=== PATIENT | female | born 1960 | race Caucasian/White ===

== ENCOUNTER 2016-12-17 12:32 | Inpatient (IN) | payer BC, MEDICARE ==
--- NOTE | ~2016-12-17 | IDS ---
Interim Discharge Summary [facility] [address] [place]. [address] NAME: SHERRY HOUSTON : 60 STATUS : ADM IN [facility]#: [id number] AGE: 56 ADM/REG DATE : 12/17/16 MR#: [id number] REPORT SERV DATE: 12/18/16 DICTATED BY: DIXON ANDREW IV DATE: 12/18/16 REPORT STATUS : Draft TRANSCRIBED BY: DARLENE DATE: 12/18/16 ADMISSION DATE: 12/17/2016 DISCHARGE DATE: DATE OF TRANSFER: To the floor was 12/18/2016. ADMITTING DIAGNOSES: 1. Acute dysarthria and weakness treated as a code stroke with tPA with reported symptomatic improvement. 2. Type 1 diabetes mellitus with insulin pump. 3. Acute kidney injury with stimulation to slight improvement in the creatinine. 4. Hypothyroidism. 5. Coronary artery disease. 6. Symptomatic obstructive sleep apnea. CONSULTANTS: Neurology, who accepted the patient from [facility] and guided therapy for the acute neurologic event. PROCEDURES: The patient had a head CT and CT angiogram of the head at [facility] prior to transfer failing to demonstrate any acute pathology of the brain with no significant obstructing lesion. She, at our facility, had an MRI demonstrating a small focal right cerebellar defect consistent with a previous infarct. An EEG which demonstrated no evidence for seizure activity and otherwise unremarkable. An echocardiogram demonstrating ejection fraction of 60% with an indeterminate bubble study secondary to poor windows. CURRENT MEDICATIONS: The patient is on Aricept 5 mg at bedtime, aspirin 81 mg daily, Bactroban 1 g each nostril twice a day, thiamine 200 mg daily, Lasix 20 mg daily, Lipitor 80 mg at bedtime, Lyrica 100 mg twice a day, Namenda 10 mg twice a day, insulin pump, Plavix 75 mg daily, Pletal 100 mg twice a day, Promega twice a day, Protonix 40 mg daily, Synthroid 137 mcg daily, multivitamin daily, Wellbutrin 400 mg daily, and vitamin D 2000 mg daily. HOSPITAL COURSE: The patient was admitted to the ICU from [facility] by Neurology after the patient presented from the physical therapist with, by reports, acute dysarthria and weakness and poor motor function in both hands, but worse on the left. The patient underwent initial screening and received tPA per protocol for what was felt to be a possible ischemic event. The patient reportedly had symptomatic improvement. She underwent her subsequent evaluation as noted above. The only positive findings were for a small focal area in the right cerebellar region, which appeared to be consistent with an old stroke. The patient continued to have some transient periods of slurred speech that would come and go, though were not consistently present. It was felt by Neurology that no further neurologic evaluation was required. She is followed as an outpatient by Dr. Jean-Baptiste and has had some waxing and waning neurologic symptoms in the past for which she has previously seen a neuropsychiatrist and was felt to possibly have some early dementia. The patient is on an insulin pump and has had consistent hemoglobin A1cs that have been elevated with one here in the 9.7 range. She has had blood sugars vary between 60s and 500, though reportedly her pump became dislodged last night in her monitoring wires. We had clinical systems educator see the Interim Discharge Summary [address] [place]. [address] NAME: SHERRY HOUSTON : 60 STATUS : ADM IN PAT#: [id number] AGE: 56 ADM/REG DATE : 12/17/16 MR#: [id number] REPORT SERV DATE: 12/18/16 DICTATED BY: DIXON ANDREW IV DATE: 12/18/16 REPORT STATUS : Draft TRANSCRIBED BY: DARLENE DATE: 12/18/16 patient today with some recommendations concerning her diet and the consistency of protein and carbohydrates. They agreed that the patient would be better served to be observed for at least 24 hours to make sure her blood sugars are adequately controlled. The patient has clinical symptoms and a history consistent with obstructive sleep apnea for which a outpatient sleep evaluation has been recommended. She had a bump in her creatinine postadmission, which may have been secondary to the contrast, however, that is returning to baseline currently at 1.22. Her potassium bump though was okay on repeat. Levels will be requested for tomorrow. It is felt that she no longer required care in the intensive care unit and will be transferred to the floor on the Hospitalist Service. They were made aware. Neurology will continue to follow the patient. NM/FLORL Dixon Andrew IV, M.D. / [id number] CC: MD Argenis Perkins M.D.
--- NOTE | ~2016-12-17 | DS ---
Discharge Summary [facility] [address] [place]. [address] NAME: SHERRY HOUSTON : 60 STATUS : DIS IN PAT#: [id number] AGE: 56 ADM/REG DATE : 12/17/16 MR#: [id number] REPORT SERV DATE: 12/19/16 DICTATED BY: DIXON ANDREW IV DATE: 12/19/16 REPORT STATUS : Draft TRANSCRIBED BY: DARLENE DATE: 12/19/16 ADMISSION DATE: 12/17/2016 DISCHARGE DATE: 12/19/2016 ADMITTING DIAGNOSES: 1. Acute dysarthria and weakness treated as a code stroke with tPA with reported symptomatic improvement. 2. Insulin-dependent diabetes mellitus, on insulin pump with poor control. 3. Acute on chronic kidney disease with a creatinine remaining above previous lows. 4. Hypothyroidism, on replacement therapy. 5. Coronary artery disease. 6. Clinical obstructive sleep apnea, not previously evaluated. CONSULTANTS: 1. Neurology, Dr. Elisabeth Broussard, who accepted the patient from [facility] and guided therapy for the acute neurologic event. 2. Diabetic teaching, who reviewed the patient's insulin pump settings and diet with the patient. PROCEDURES: 1. Head CT and CT angiogram of the head at [facility], which failed to demonstrate any acute pathology in the brain and no significant vascular obstructing lesion. 2. MRI of the brain demonstrating a small focal right cerebellar defect consistent with a previous infarct. 3. An EEG, which demonstrated no evidence for seizure activity and otherwise was unremarkable. 4. Echocardiogram demonstrating normal left ventricular ejection fraction of 60% with no valvular disease and an indeterminate bubble study secondary to poor windows. MEDICATIONS: At the time of discharge include Aricept 5 mg at bedtime, aspirin 81 mg daily, Lasix 20 mg daily, Crestor 10 mg daily, biotin 10 mg daily, Wellbutrin 400 mg every morning, Invokana 100 mg before breakfast, Pletal 100 mg twice a day, Plavix 75 mg daily, Synthroid 137 mcg daily, Namenda 10 mg twice a day, Ocuvite one daily, NitroMist daily, fish oil daily, Percocet p.r.n., Protonix 40 mg daily, Lyrica 100 mg twice a day, Crestor 10 mg at bedtime, and insulin pump. HOSPITAL COURSE: The patient was admitted to the ICU from [facility] by Neurology after she presented with dysarthria; complaints of weakness, right greater than left with decreased fine motor function in both hands. The patient underwent initial screening studies and received tPA per protocol. It was felt to be a possible ischemic event. The patient reportedly had symptomatic improvement. She underwent subsequent evaluation with studies as noted above. The patient did have some transient periods of slurred speech that were not consistently present. It was felt by Neurology that no further neurologic evaluation was indicated, and she was put back on the anti-platelet medications. She is scheduled to see Dr. Jean-Baptiste as an outpatient and may benefit from her repeat neuropsychiatric evaluation. The patient had elevated hemoglobin A1c on presentation and has had documented high hemoglobin Discharge Summary [address] [place]. [address] NAME: SHERRY HOUSTON : 60 STATUS : DIS IN PAT#: [id number] AGE: 56 ADM/REG DATE : 12/17/16 MR#: [id number] REPORT SERV DATE: 12/19/16 DICTATED BY: DIXON ANDREW IV DATE: 12/19/16 REPORT STATUS : Draft TRANSCRIBED BY: DARLENE DATE: 12/19/16 A1c's in the [employer] system. We had diabetic teaching review her pump settings, which were not changed though they did review proper diet and carbo-protein mix with the patient. The patient had significant fluctuations in her blood sugars and had an episode of disconnection of the pump. This stabilized, however, blood sugars remained in the low 200 to high 180s, which will need to be followed. The patient provided a history consistent with obstructive sleep apnea for which an outpatient sleep evaluation with Dr. Smith was scheduled. The patient had a slightly elevated creatinine, which remained in the 1 to 2 range, which is slightly higher than her baseline and will be followed as an outpatient with her primary care doctor, Dr. Najera. The patient was scheduled for transfer to the floor, however, no beds were available, so she will be discharged today from the intensive care unit with followup as noted. She will see Dr. Jean-Baptiste in one to two weeks, Dr. Holt as scheduled, and Dr. Najera in two to three weeks with a repeat chemistry panel. Outpatient evaluation will be scheduled for sleep evaluation. ROSEMARY/DARLENE Dixon Andrew IV, M.D. / [id number] CC: MD Argenis Perkins M.D. Alexander Stratienko, M.D. Matthew Kodsi, M.D., PhD. Roby Holt M.D.
--- NOTE | ~2016-12-17 | CN ---
Consultation Report [facility] [address] [place]. [address] NAME: SHERRY HOUSTON : 60 STATUS : ADM IN PAT#: [id number] AGE: 56 ADM/REG DATE : 12/17/16 MR#: [id number] REPORT SERV DATE: 12/17/16 DICTATED BY: DATE: REPORT STATUS : Draft TRANSCRIBED BY: MODL DATE: 12/17/16 NEUROLOGY CONSULTATION DATE OF CONSULTATION: 12/17/2016 REASON FOR CONSULT: Right upper extremity weakness and ataxia. HISTORY OF PRESENT ILLNESS: This is a 56-year-old female, who presented to [facility] on 12/17/2016, secondary to acute onset of difficulty moving right upper extremity, with the patient having difficulties buttoning shirts, and putting earrings on. The patient reports the symptoms started after awakening at around 6 o'clock, with the patient having had multiple episodes over the past six months. The patient reports the symptoms started with abnormal sensation, dysarthria, as well as shaking in bilateral hands, sometimes that follow with headache. With the patient reports symptom usually resolved after an hour. The patient reports the symptom has resolved today without residual deficits. The usual frequency of symptoms is roughly one to two episodes per month at least and is being ongoing for at least six months. The patient does reports having some increased psychosocial stress, secondary to medical issues of her mother. The patient otherwise denies any recent illness, fever, chills, nausea, vomiting, chest pain, or shortness of breath, and denies any current symptoms. The patient denies any recent changes in medication. The patient is followed by Dr. Sunny Jean-Baptiste, [facility], secondary to subjective memory difficulties. With the patient has been referred to neuropsychiatry for further evaluation. Otherwise, no recent change in medication was reported by the patient. PAST MEDICAL HISTORY: The patient has past medical history is significant for subjective memory difficulties, referred to and evaluated by Dr. Sunny Jean-Baptiste, with the recent neuropsychiatric evaluation. The patient in addition was also noted to have type 1 diabetes. SOCIAL HISTORY: Denies current tobacco, alcohol, or recreational drug usage. The patient does reports previous tobacco usage and quit more than 10 years ago. The patient does also have coronary artery disease, status post stents. FAMILY HISTORY: Significant for coronary artery disease, myocardial infarction. Family history is also significant for pacemaker placement. ALLERGIES: THE PATIENT REPORTS ALLERGY TO TRAZODONE. HOME MEDICATIONS: Aspirin, biotin, Symbicort, Wellbutrin, Invokana, vitamin D, Pletal, Plavix, Aricept, Lasix, levothyroxine, Namenda, Ocuvite, nitroglycerin, fish oil, Percocet, Crestor, Lyrica, and Protonix. The patient in addition was also noted to have an insulin pump placement. REVIEW OF SYSTEMS: Consultation Report [facility] [address] [place]. [address] NAME: SHERRY HOUSTON : 60 STATUS : ADM IN PAT#: [id number] AGE: 56 ADM/REG DATE : 12/17/16 MR#: [id number] REPORT SERV DATE: 12/17/16 DICTATED BY: DATE: REPORT STATUS : Draft TRANSCRIBED BY: MODL DATE: 12/17/16 Negative except for those mentioned in the HPI. PHYSICAL EXAMINATION: VITAL SIGNS: At the time of evaluation, the patient was noted to have vital signs with T- max of 97.8, heart rate of 75 to 79, respirations of 14 to 18, and blood pressure of 107 to 134/67 to 71. GENERAL: The patient is well-developed, well-nourished, in no acute distress. CARDIOVASCULAR: Regular rate and rhythm. No carotid bruits were otherwise auscultated. PULMONARY: Clear to auscultation bilaterally. NEUROLOGIC: Generally, the patient is alert and oriented to person, place, year, and month. Follows simple and 2-step commands. No dysarthria or aphasia was noted at the time of evaluation. Intact registration with some difficulty with recall. Cranial nerves 2 through 12, pupils equal, round, and reactive to light. Extraocular eye movement was noted to be intact, with intact blink to threat response. Symmetrical facial expression and sensation. Midline tongue. Normal palatal movement. Normal hearing. The patient was noted to have 4/5 right upper extremity strength which the patient reports, secondary to previous shoulder injury, but otherwise no pronator drift was noted. The patient demonstrated 5/5 left upper extremity strength and 5/5 bilateral lower extremity strength. Normal [id number] examination without ataxia. Reports symmetrical sensation bilaterally. Deep tendon reflex was 2+ throughout. Downgoing toe on bilateral plantar reflexes. Gait was not evaluated, secondary to tPA administration as well as acute symptom. LABORATORY DATA: Laboratory study demonstrates sodium 143, potassium 3.4, chloride 105, bicarb 31, BUN of 24, creatinine 1.05, glucose of 97, calcium of 8.9, magnesium 2.0. White blood cell count of 5.8, hemoglobin of 13.6, hematocrit of 42.7, and platelet count of 293. CT scan of the brain demonstrated previous lacunar infarct, but otherwise no acute process was seen. No significant atrophy. CT angiogram of the head and neck demonstrated no significant stenosis or possible thrombus. IMPRESSION: 1. Right upper extremity weakness. NIH stroke scale was noted to be 1. Symptom was noted to resolve according to the patient. The patient reports back to baseline, status post tPA therapy. With the patient reports recurrent similar symptoms over the past six months. With the patient reports at least one to two episodes per month. We will obtain MRI of the brain for evaluation. We will also check EEG. Meanwhile, we will perform stroke workup. Current differential diagnosis includes possible TIA versus stroke, versus possible seizure, versus complex migraine, versus psychogenic event. RECOMMENDATION: 1. We will hold aspirin and Plavix, secondary to recent tPA. 2. Atorvastatin 80 mg p.o. at bedtime. 3. PT/OT. 4. MRI of the brain without contrast. 5. EEG. 6. Echocardiogram. Consultation Report [address] [address] NAME: SHERRY HOUSTON : 60 STATUS : ADM IN [facility]#: [id number] AGE: 56 ADM/REG DATE : 12/17/16 MR#: [id number] REPORT SERV DATE: 12/17/16 DICTATED BY: DATE: REPORT STATUS : Draft TRANSCRIBED BY: MODL DATE: 12/17/16 7. Fasting lipid panel and hemoglobin A1c evaluation. [facility]/MODL Yash Broussard MD / [id number] CC: Karel Mansfield MD
--- NOTE | ~2016-12-17 | EEG ---
Electroencephalogram [facility] [address] [place]. [address] NAME: SHERRY HOUSTON : 60 STATUS : ADM IN PAT#: [id number] AGE: 56 ADM/REG DATE : 12/17/16 MR#: [id number] REPORT SERV DATE: 12/17/16 DICTATED BY: DATE: REPORT STATUS : Draft TRANSCRIBED BY: MODL DATE: 12/17/16 CLINICAL INDICATIONS: Weakness. DESCRIPTION: This EEG was performed using 10/20 electrode placement system. During the EEG study, symmetric background activity was noted with predominant occipital rhythm of between 12-13 hertz. Photic stimulation was performed with appropriate driving response. Hyperventilation was not performed. During the EEG study, the patient achieved drowsy as well as stage I and II sleep with appropriate K complexes as well as sleep spindles. No focal abnormalities, seizure activity, or seizure discharge was otherwise noted during the EEG study. INTERPRETATION: This EEG study obtained during awake, drowsy, as well as stage I and II sleep may be considered within normal limits. No focal abnormalities, seizure activity, or seizure discharge was otherwise seen. Normal EEG does not rule out clinical seizure or seizure disorder. Clinical correlation is otherwise recommended. [facility]/MODL Yash Broussard MD / [id number] CC: Karel Mansfield MD
--- NOTE | ~2016-12-17 | HP ---
History And Physical [address] [id number] [place]. [address] NAME: SHERRY FLOREZ : 60 STATUS : ADM IN [facility]#: [id number] AGE: 56 ADM/REG DATE : 12/17/16 MR#: [id number] REPORT SERV DATE: 12/17/16 DICTATED BY: DIXON ANDREW IV DATE: 12/17/16 REPORT STATUS : Draft TRANSCRIBED BY: DARLENE DATE: 12/17/16 DATE OF ADMISSION: 12/17/2016 REASON FOR ADMISSION: Acute neurologic event for which the patient received tPA. HISTORY OF PRESENT ILLNESS: History is obtained from the patient and records. Ms. Florez is a 56-year-old female with a history of fibromyalgia, diabetes mellitus, hypothyroidism, coronary artery disease, peripheral arterial disease, and neurologic symptoms to include predominantly altered memory, who is admitted with status post tPA for possible acute stroke. The patient states that she has been followed by Dr. Jean-Baptiste for two years for several neurologic complaints. This is predominantly alteration in her mental status. She underwent a recent neuropsychiatric evaluation by her report. Concern about possibly an early dementia. She does have these waxing and waning episodes of decreased fine motor function particularly in her hands. She additionally will have episodes of dysarthria. She relates that she was being seen by her physical therapist when she developed acute onset of dysarthria. This was associated with clumsiness in both hands. She states that specifically her left hand fell off to the side. She went to the emergency room, where there was concern about this being a "stroke." She underwent a head CT and CT angiogram, which failed to demonstrate any clear pathology, so she received tPA per protocol. She noted improvement of symptoms after infusion for which she was transferred here for further evaluation. The patient had no recent trauma. She denies any headaches. She denied shortness of breath, chest pain, fevers, chills, or sweats. The patient reportedly snores. Her has never described apneic episodes. She allows herself six to seven hours of sleep most evenings. Sleep is nonrestorative, and she does complain of some sedentary hypersomnolence. PULMONARY HISTORY: Remarkable for no history of childhood asthma, known adult obstructive lung disease or previous pneumonia. She was a 25-pack year smoker, who quit 13 years ago. 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 She is up to date on the seasonal influenza vaccine and pneumococcal vaccinations. PAST MEDICAL ILLNESSES: 1. Fibromyalgia. 2. Diabetes mellitus. 3. Hypothyroidism. 4. Coronary artery disease. 5. Peripheral arterial disease. 6. The unspecified neurologic disorder. SURGERIES: 1. The patient had several surgeries on her right shoulder, now with a right shoulder replacement. 2. Cardiac stent placement. 3. Right femoral artery stent placement. 4. Bilateral tubal ligation. History And Physical [address] [address] NAME: SHERRY FLOREZ : 60 STATUS : ADM IN [facility]#: [id number] AGE: 56 ADM/REG DATE : 12/17/16 MR#: [id number] REPORT SERV DATE: 12/17/16 DICTATED BY: DIXON ANDREW IV DATE: 12/17/16 REPORT STATUS : Draft TRANSCRIBED BY: DARLENE DATE: 12/17/16 ALLERGIES: REPORTED INTOLERANCE TO TRAZODONE, WHICH CAUSED TREMOR, NAUSEA, AND VOMITING. HOME MEDICATIONS: The patient is on aspirin 81 mg daily, biotin 10 mg daily, Wellbutrin 400 mg every morning, Invokana 100 mg before breakfast, Pletal 100 mg twice a day, Plavix 75 mg daily, Aricept 5 mg at bedtime, Lasix 20 mg daily, Synthroid 137 mcg daily, Namenda 10 mg twice a day, Percocet p.r.n., Protonix 40 mg daily, Lyrica 100 mg twice a day, Crestor 10 mg at bedtime, and an insulin pump. SOCIAL HISTORY: Remarkable for the previous tobacco use as above. She denies alcohol or illicit drug use. Smoking history as noted above. Patient has occasional alcohol use up to a glass of wine a day. There is a remote use of marijuana. She is , has one child. FAMILY HISTORY: Remarkable for father with a pacemaker and her mother who had congestive heart failure and coronary artery disease. REVIEW OF SYSTEMS: 14 systems reviewed. Pertinent positives as noted above. PHYSICAL EXAMINATION: GENERAL: On physical exam, this is a moderately overweight, late middle-aged female, appearing older than her stated age, in no respiratory distress currently. VITAL SIGNS: Temperature 98.7, pulse is 91, respiratory rate is 24, saturation 96% on room air, blood pressure is 96/44. HEENT: Patient is normocephalic, atraumatic. Extraocular movements are intact. Pupils react to light. Sclerae and conjunctivae normal. NECK: Without any palpable lymphadenopathy or thyromegaly. CHEST: Lungs are clear to auscultation and percussion with no wheezes, rhonchi, or crackles noted. CARDIOVASCULAR: Jugular venous pulsations are 6 cm. She has a radiated murmur bilaterally. There is an irregular S1, S2 with a 2/6 systolic murmur at the right upper sternal border. No clear S3 is noted. Peripheral pulses are diminished. ABDOMEN: Soft and nontender. There are hypoactive bowel sounds. There is no palpable hepatosplenomegaly or masses. EXTREMITIES: Demonstrate no cyanosis, clubbing, or palpable cords. She does have osteoarthritic changes of her fingers. NEUROLOGIC: The patient has some past pointing on exam, though some of it is inconsistent. Fine motor is slightly slow. Cranial nerves are grossly intact. There is no gross abnormalities in strength with sensation decreased in a stocking distribution. IMAGING: Chest x-[facility] at [facility] demonstrates no acute pulmonary disease. There is surgically replaced right shoulder. The CT of the brain demonstrated no acute stroke or bleed. CT angiogram demonstrated no significant occlusive disease. LABORATORY DATA: Chemistry: Sodium is 143, potassium 3.4, chloride 105, bicarb 31, BUN 24, creatinine 1.05, glucose of 97, magnesium is 2. Troponin is less than 0.02. Chemical drug screen is negative. Urine drug screen was negative as well. CBC: Hemoglobin is 13.6, History And Physical [address] [address] NAME: SHERRY FLOREZ : 60 STATUS : ADM IN [facility]#: [id number] AGE: 56 ADM/REG DATE : 12/17/16 MR#: [id number] REPORT SERV DATE: 12/17/16 DICTATED BY: DIXON ANDREW IV DATE: 12/17/16 REPORT STATUS : Draft TRANSCRIBED BY: DARLENE DATE: 12/17/16 hematocrit 42.7, platelet count was 293,000, white count is 5.8. INR is 1, PTT is 25.6. ASSESSMENT AND PLAN: 1. Neurologic. The patient noted clinical improvement, status post the tPA, however, there were some inconsistencies on exam. We will complete the current evaluation with further management per Neurology. The patient will be given thiamine 200 mg daily with some degree of alcohol use. 2. Renal. We will replace the patient's potassium and check tomorrow. We will add a phosphate level as well. 3. Cardiovascular. No evidence for acute ischemic event. We will continue the outpatient medications. 4. Endocrinologic. We will continue the Synthroid. Thyroid functions will be obtained. The patient remained on the insulin pump. 5. Gastrointestinal. An 1800-calorie ADA diet has been obtained. Hemoglobin A1c level will be obtained, which have been elevated in the past. 6. Hematologic. Pneumatic compression stockings for deep vein thrombosis prophylaxis. The patient will be started on Lovenox tomorrow. 7. Respiratory. The patient has clinical obstructive sleep apnea and will obtain an outpatient sleep evaluation. The patient is not using Symbicort will be discontinued. The patient will be admitted to the ICU for observation. Neurology has already seen the patient with the decision to administer tPA and will supervise further neurologic evaluation. ROSEMARY/MODL Dixon Andrew IV, M.D. / [id number] CC: Karel Mansfield MD
[~2016-12-17 12:32] MED LIST: APIDRA INSULIN PUMP SC; ARICEPT10 MG PO; ARICEPT10 PO; ASA5GR PO; ASAB PO; ASABAYER PO; BACDS PO; BIOTIN10 MG PO; BIOTIN1000 MCG OR; BL CHROMIUM200 MCG PO; CILOSTAZOL100 MG PO; CONSTULOSE PO; CR-PLUS500 MCG OR; CRESTOR10 PO; CRESTOR5 MG PO; CYMBALTA60 PO; FISH-EPA1000 MG PO; GINGER ROOT; GLUCCHONDR PO; HUMALOG SC; HUMAPUMP SC; IBU800 PO; INVOKANA100 MG PO; L20 PO; LAMICTAL XR100 MG PO; LAMICTAL10 PO; LAMICTAL200 MG PO; LEVEMFLXPN SC; LEVOXYL100 MCG PO; LEVOXYL125 MCG PO; LEVOXYL137 MCG PO; LEVOXYL150 MCG PO; LOP25 PO; LORTAB 5 PO; LYRICA100 MG PO; LYRICA150 MG PO; LYRICA75 PO; Levoxyl; NAMENDA10 MG PO; NITROMIST400 MCG SL; OCUVITE PO; OSTEO BI-FLX PO; PCET PO; PLAVIX PO; PRIN10 PO; PRIN5 PO; PROMEGA PO; PROTONIX PO; ROXICET1 TAB PO; SAVELLA50 MG PO; SYMBICORT 80/4.1 INH INH; VITAMIN D1000 UNI1 PO; WELL100 PO
[2016-12-18 04:59] LABS: BASOPHILS 0.4 %; BASOPHILS ABSOLUTE 0.02 10/3/uL (0.0-0.16); EOSINOPHILS 5.5 %; EOSINOPHILS ABSOLUTE 0.27 10/3/uL (0.0-0.53); HEMATOCRIT 40.1 % (36.0-48.0); HEMOGLOBIN 12.8 g/dL (12.0-16.0); IMMATURE GRANULOCYTES 0.2 %; IMMATURE GRANULOCYTES ABSOLUTE 0.01 10/3/uL (0.0-0.11); LYMPHOCYTES 31.3 %; LYMPHOCYTES ABSOLUTE 1.53 10/3/uL (0.67-4.30); MEAN CORPUS HGB CONC 31.9 g/dL (32.0-36.0); MEAN CORPUSCULAR VOLUME 94.1 fL (80-100); MEAN PLATELET VOLUME 10.7 fL (9.2-13.0); MONOCYTES 10.4 %; MONOCYTES ABSOLUTE 0.51 10/3/uL (0.21-1.20); NEUTROPHILS 52.2 %; NEUTROPHILS ABSOLUTE 2.55 10/3/uL (2.02-8.40); PLATELET COUNT 284 10/3/uL (150-400); RBC DISTRIBUTION WIDTH 16.3 % (12.0-16.0); RED CELL COUNT 4.26 10/6/uL (4.0-5.6); WHITE BLOOD CELLS 4.9 10/3/uL (4.5-10.5)
[2016-12-18 05:01] LABS: MANUAL DIFF NO %
[2016-12-18 06:12] LABS: ALBUMIN 3.2 G/DL (3.5-5.0); BUN (BLOOD UREA NITROGEN) 25 MG/DL (6-23); CALCIUM, SERUM 8.7 MG/DL (8.5-10.4); CHLORIDE, SERUM 104 MMOL/L (96-112); CREATININE 1.29 MG/DL (0.55-1.02); DIRECT BILIRUBIN 0.1 MG/DL (0.0-0.4); FREE T4 1.42 NG/DL (0.76-1.46); GFR AFRICAN AMERICAN 54 ML/MIN (>=60); GFR NON AFRICAN AMERICAN 46 ML/MIN (>=60); INDIRECT BILIRUBIN(NOT ORDER) 0.4 MG/DL (0.1-0.9); PHOSPHORUS, SERUM 3.5 MG/DL (2.5-4.5); SGOT(AST) 14 U/L (5-40); SGPT(ALT) 29 U/L (5-65); SODIUM, SERUM 138 MMOL/L (135-148); TOTAL BILIRUBIN 0.5 MG/DL (0-1.2); TOTAL PROTEIN 6.3 G/DL (6.0-8.5)
[2016-12-18 06:13] LABS: ALKALINE PHOSPHATASE 157 U/L (45-117); CHOL/HDL RATIO(NOT ORDER) 1.7 (0-5); CHOLESTEROL 161 MG/DL (< 200); CO2 (CARBON DIOXIDE) 22 MMOL/L (24-34); FOLATE 22.9 NG/ML (>5.2); GLUCOSE, SERUM 525 MG/DL (60-99); HDL CHOLESTEROL 96 MG/DL (> 49); LDL CHOLESTEROL 48 MG/DL (< 130); NON-HDL CHOLESTEROL 65 MG/DL (< 160); POTASSIUM, SERUM 5.3 MMOL/L (3.5-5.3); TRIGLYCERIDE 89 MG/DL (< 150)
[2016-12-18 14:48] LABS: BUN (BLOOD UREA NITROGEN) 23 MG/DL (6-23); CALCIUM, SERUM 8.9 MG/DL (8.5-10.4); CHLORIDE, SERUM 105 MMOL/L (96-112); CREATININE 1.22 MG/DL (0.55-1.02); GFR AFRICAN AMERICAN 57 ML/MIN (>=60); GFR NON AFRICAN AMERICAN 49 ML/MIN (>=60); POTASSIUM, SERUM 4.3 MMOL/L (3.5-5.3); SODIUM, SERUM 140 MMOL/L (135-148)
[2016-12-18 14:49] LABS: CO2 (CARBON DIOXIDE) 29 MMOL/L (24-34); GLUCOSE, SERUM 296 MG/DL (60-99)
[2016-12-19 04:07] LABS: BASOPHILS 0.3 %; BASOPHILS ABSOLUTE 0.02 10/3/uL (0.0-0.16); EOSINOPHILS 4.5 %; EOSINOPHILS ABSOLUTE 0.32 10/3/uL (0.0-0.53); HEMATOCRIT 42.8 % (36.0-48.0); HEMOGLOBIN 14.1 g/dL (12.0-16.0); IMMATURE GRANULOCYTES 0.3 %; IMMATURE GRANULOCYTES ABSOLUTE 0.02 10/3/uL (0.0-0.11); LYMPHOCYTES 27.3 %; LYMPHOCYTES ABSOLUTE 1.95 10/3/uL (0.67-4.30); MEAN CORPUS HGB CONC 32.9 g/dL (32.0-36.0); MEAN CORPUSCULAR HEMOGLOB 30.9 pg (26.0-34.0); MEAN CORPUSCULAR VOLUME 93.7 fL (80-100); MEAN PLATELET VOLUME 10.7 fL (9.2-13.0); MONOCYTES 7.4 %; MONOCYTES ABSOLUTE 0.53 10/3/uL (0.21-1.20); NEUTROPHILS 60.2 %; NEUTROPHILS ABSOLUTE 4.29 10/3/uL (2.02-8.40); PLATELET COUNT 284 10/3/uL (150-400); RBC DISTRIBUTION WIDTH 16.1 % (12.0-16.0); RED CELL COUNT 4.57 10/6/uL (4.0-5.6)
[2016-12-19 04:08] LABS: MANUAL DIFF NO %; WHITE BLOOD CELLS 7.1 10/3/uL (4.5-10.5)
[2016-12-19 04:21] LABS: BUN (BLOOD UREA NITROGEN) 25 MG/DL (6-23); CALCIUM, SERUM 8.9 MG/DL (8.5-10.4); CHLORIDE, SERUM 107 MMOL/L (96-112); CO2 (CARBON DIOXIDE) 29 MMOL/L (24-34); CREATININE 1.25 MG/DL (0.55-1.02); GFR AFRICAN AMERICAN 56 ML/MIN (>=60); GFR NON AFRICAN AMERICAN 48 ML/MIN (>=60); GLUCOSE, SERUM 251 MG/DL (60-99); PHOSPHORUS, SERUM 3.5 MG/DL (2.5-4.5); SODIUM, SERUM 144 MMOL/L (135-148)
[2017-05-26] MEDS ORDERED: ABILIFY2 PO (09:19)
[2017-05-26] MEDS ORDERED: CO Q-10100 MG PO (09:19)
[2017-05-26] MEDS ORDERED: CYMBALTA60 PO (09:20)
[2017-05-26] MEDS ORDERED: PROTONIX PO (09:21)
[2017-05-26] MEDS ORDERED: OCUVITE PO (09:22)
[2017-05-26] MEDS ORDERED: LYRICA100 MG PO (09:22)
[2017-05-26] MEDS ORDERED: ADDERALL20 MG PO (09:23)
== END 2016-12-19 13:03 | disposition home or self-care (01) | DRG 62 ==
LOC: CCU 12:32
PROVIDERS: Internal Medicine Critical Care Medicine; Psychiatry & Neurology Neurology
DX: I63.9 Cerebral infarction, unspecified (principal); N17.9 Acute kidney failure, unspecified; E10.8 Type 1 diabetes mellitus with unspecified complications; M79.7 Fibromyalgia; E03.9 Hypothyroidism, unspecified; I25.10 Atherosclerotic heart disease of native coronary artery without angina pectoris; I73.9 Peripheral vascular disease, unspecified; Z96.41 Presence of insulin pump (external) (internal); J44.9 Chronic obstructive pulmonary disease, unspecified; R47.1 Dysarthria and anarthria; R53.1 Weakness; G47.33 Obstructive sleep apnea (adult) (pediatric); Z82.49 Family history of ischemic heart disease and other diseases of the circulatory system; Z88.8 Allergy status to other drugs, medicaments and biological substances; Z79.4 Long term (current) use of insulin
CPT/HCPCS: 70551; 80048; 80061; 80076; 80305; 82607; 82746; 82962; 83036; 83735; 84100; 84439; 84443; 85025; 87641; 93306; 95819; A9270-GY; J3411